=== PATIENT | female | born 1975 | race Caucasian/White ===

== ENCOUNTER 2024-01-12 00:20 | Emergency (ER) | payer SELFPAY ==
[~2024-01-12] VITALS: Ht 154.9 cm; Wt 49.9 kg
[2024-01-12 00:26] VITALS: BP 152/98; PULSE 110; RESP 18; TEMP 98.3; O2SAT 98
[2024-01-12 01:36] LABS: BASOPHILS % (AUTO) 0.1 % (0.0-2.0); HEMATOCRIT 40.4 % (36-48); HEMOGLOBIN 14.7 g/dL (12.0-16.0); LYMPHOCYTES # (AUTO) 1.1 K/uL (2.5-16.5); MEAN CORPUSCULAR HEMOGLOBIN 33 pg (27-31); MEAN CORPUSCULAR HGB CONC 36 g/dL (33-37); MEAN CORPUSCULAR VOLUME 90.4 fL (80-94); MONOCYTES # (AUTO) 0.9 K/uL (0.8-1.0); MONOCYTES % (AUTO) 7.1 % (1.7-9.3); NEUTROPHILS # (AUTO) 10.4 K/uL (1.8-7.7); NEUTROPHILS % (AUTO) 83.8 % (42.2-75.2); PLATELET COUNT (AUTO) 142 K/uL (140-450); RED BLOOD CELL COUNT(AUTO) 4.48 MIL/uL (4.20-5.40); RED CELL DISTRIBUTION WIDTH 13.2 % (11.6-13.7); WHITE BLOOD COUNT (AUTO) 12.4 K/uL (4.8-10.8)
[2024-01-12] MEDS: NACL 0.9% 1,000 ML IV ONE ×2 (01:40→04:06)
[2024-01-12] MEDS: levETIRAcetam 1,000 MG in NACL 0.9% 100 ML IV ONE (01:41)
[2024-01-12] MEDS: levETIRAcetam 100 MG/ML VIAL IV ONE (01:41)
[2024-01-12 01:45] LABS: ANION GAP 16.6 (8-16); CALCIUM 9.2 mg/dL (8.5-10.1); CARBON DIOXIDE 31.3 mmol/L (21-32); CREATININE 0.5 mg/dL (0.6-1.3)
[2024-01-12 01:48] LABS: POTASSIUM 2.9 mmol/L (3.5-5.1)
[2024-01-12 01:50] LABS: ALANINE AMINOTRANSFERASE 43 U/L (12-78); ALBUMIN 3.8 g/dL (3.4-5.0); ALKALINE PHOSPHATASE 119 U/L (50-136); ASPARTATE AMINOTRANSFERASE 92 U/L (15-37); BILIRUBIN,DIRECT 0.8 mg/dL (0.0-0.3); TOTAL BILIRUBIN 2.7 mg/dL (0.0-1.0); TOTAL PROTEIN, SERUM 7.7 g/dL (6.4-8.2)
[2024-01-12 02:01] LABS: ALCOHOL, BLOOD < 3 mg/dL (<10)
[2024-01-12] MEDS: MORPHINE SULFATE 4 MG/ML SYR IVP ONE (04:16)
[2024-01-12 05:33] VITALS: BP 132/80; PULSE 92; RESP 15; TEMP 98; O2SAT 98
== END 2024-01-12 05:33 | disposition home or self-care (01) ==
LOC: MED 00:20
DX: F10.239 Alcohol dependence with withdrawal, unspecified (principal); Y90.9 Presence of alcohol in blood, level not specified
CPT/HCPCS: 36415; 80048; 80076; 85025; 96361; 96365; 96375; 99284; G0482; J1953; J2270; J7030